=== PATIENT | male | born 1960 | race Caucasian/White ===

== ENCOUNTER → 2020-01-08 | Outpatient (CLI) | payer OTHER ==
[~2020-01-08] MED LIST: [UNRECOGNIZED DRUG - OTHER] PO; ashwagandha PO; vitamin c PO
== END | disposition home or self-care (01) ==
LOC: STAR 07:24
PROVIDERS: ATTEND Surgery
DX: Z01.812 Encounter for preprocedural laboratory examination (principal); Z20.828 Contact with and (suspected) exposure to other viral communicable diseases; R00.1 Bradycardia, unspecified
CPT/HCPCS: 87635; 93005

== ENCOUNTER 2020-01-12 05:52 | Day surgery (SDC) | payer OTHER ==
[~2020-01-12] VITALS: Ht 180.3 cm; Wt 89.0 kg
[2020-01-12] MEDS ORDERED: BUPIVACAINE/PF 0.5% ONE (06:40)
[2020-01-12] MEDS ORDERED: EPINEPHRINE 1 MG/ML, 1ML ONE (06:41)
[2020-01-12] MEDS ORDERED: CHLORHEXIDINE 15 ML UDC MM STA (06:46)
[2020-01-12] MEDS ORDERED: MIDAZOLAM 1 MG/ML, 2ML ONE (06:53)
[2020-01-12] MEDS ORDERED: FENTANYL PF 250 MCG/5ML ONE (06:53)
[2020-01-12 06:56] VITALS: BP 139/78
[2020-01-12] MEDS ORDERED: ROCURONIUM 10MG/ML,5ML ONE (06:57)
[2020-01-12] MEDS ORDERED: CEFAZOLIN 1,000 MG ONE (06:57)
[2020-01-12] MEDS ORDERED: PROPOFOL 10 MG/ML, 20ML ONE (06:57)
[2020-01-12] MEDS ORDERED: NEOSTIGMINE 1 MG/ML, 10ML ONE (06:57)
[2020-01-12] MEDS ORDERED: GLYCOPYRROLATE 0.2MG/1ML, 5ML ONE (06:57)
[2020-01-12] MEDS ORDERED: LACTATED RINGERS 1,000 ML IV SCH (07:00)
[2020-01-12] MEDS ORDERED: PLEASE ENTER HEIGHT AND WEIGHT MC SCH (07:00)
[2020-01-12] MEDS ORDERED: CHLORHEXIDINE 15 ML UDC ONE (07:04)
[2020-01-12] MEDS ORDERED: OXYcodone 5 MG/5 ML ORAL.SOL UDC PO PRN (07:30)
[2020-01-12] MEDS ORDERED: MEPERIDINE/PF 25MG/0.5ML IVPush PRN (07:30)
[2020-01-12] MEDS ORDERED: FENTANYL PF 100 MCG/2ML IV PRN (07:30)
[2020-01-12] MEDS ORDERED: ACETAMINOPHEN 325 MG TABLET PO PRN (07:30)
[2020-01-12] MEDS ORDERED: hydrALAzine 20 MG/ML, 1ML IV PRN (07:30)
[2020-01-12] MEDS ORDERED: HYDROmorphone 1 MG/ML, 1ML INJ IVPush PRN (07:30)
[2020-01-12] MEDS ORDERED: ONDANSETRON 2MG/ML, 2ML IVPush PRN (07:30)
[2020-01-12] MEDS ORDERED: morphine SULFATE 10 MG/ML, 1ML IVPush PRN (07:30)
[2020-01-12] MEDS ORDERED: LABETALOL 5MG/ML, 20ML IV PRN (07:30)
[2020-01-12] MEDS ORDERED: KETOROLAC 30 MG/1 ML ONE (08:20)
[2020-01-12] MEDS ORDERED: FENTANYL PF 100 MCG/2ML ONE (08:32)
== END 2020-01-12 11:10 | disposition home or self-care (01) ==
LOC: OUT 05:52
PROVIDERS: ATTEND Surgery
DX: K40.90 Unilateral inguinal hernia, without obstruction or gangrene, not specified as recurrent (principal); K57.30 Diverticulosis of large intestine without perforation or abscess without bleeding; K66.0 Peritoneal adhesions (postprocedural) (postinfection); E78.5 Hyperlipidemia, unspecified; Z79.899 Other long term (current) drug therapy; Z98.890 Other specified postprocedural states
CPT/HCPCS: 49650; C1781; J0171; J0690; J1885; J2250; J2704; J2710; J3010; S2900